=== PATIENT | female | born 1990 | race Hispanic/Latino ===

== ENCOUNTER 2024-07-01 20:33 | Emergency (ER) | payer OTHER ==
[~2024-07-01] VITALS: Ht 157.5 cm; Wt 94.3 kg
[2024-07-01] MEDS ORDERED: PENICILLIN G BENZATHINE LA 1.2 MU TBX ONE (21:47)
[2024-07-01 21:51] VITALS: PULSE 87; RESP 18; TEMP 98.3; O2SAT 98
[2024-07-01] MEDS ORDERED: ONDANSETRON HCL 4 MG ORAL DISINTEGRATING TAB ONE (21:59)
[2024-07-01] MEDS ORDERED: IBUPROFEN 600 MG TAB ONE (21:59)
[2024-07-01] MEDS: ONDANSETRON HCL 4 MG ORAL DISINTEGRATING TAB PO ONE (22:48)
[2024-07-01] MEDS: IBUPROFEN 600 MG TAB PO STA (22:48)
[2024-07-01 23:10] LABS: INFLUENZAE A&B ANTIGEN (RAPID) NEGATIVE (NEGATIVE); RESPIRATORY SYNC. VIRUS NEGATIVE (NEGATIVE)
[2024-07-01] MEDS ORDERED: PENICILLIN G BENZATHINE LA 1.2 MU TBX IM STA (23:21)
[2024-07-01] MEDS ORDERED: ONDANSETRON ODT4 MG SL (23:55)
[2024-07-02] MEDS ORDERED: ONDANSETRON HCL 4 MG ORAL DISINTEGRATING TAB PO ONE
== END 2024-07-02 00:10 | disposition home or self-care (01) ==
LOC: ER 20:39
DX: R05.9 Cough, unspecified (principal); J02.0 Streptococcal pharyngitis; Z11.52 Encounter for screening for COVID-19
CPT/HCPCS: 71046; 83518; 87400; 87420; 93005; 99283; J0561; Q0162; U0002